=== PATIENT | male | born 2000 | race Caucasian/White ===

== ENCOUNTER → 2023-03-27 08:54 | Outpatient (CLI) | payer BC, SELFPAY ==
--- NOTE | ~2023-03-27 | MR_ITS ---
MRI of the cervical spine Clinical History: Neck pain, radiculopathy Technique: Axial T2-weighted and gradient images, and sagittal T1-weighted, T2-weighted, and STIR zuleyma ges were acquired. Findings: There is no fracture or dislocation of the cervical spine. Vertebral bodies maintain normal height and alignment. No bone marrow signal abnormality seen. At C2-C3, there is no disc bulge or herniation. No spinal canal stenosis, cord compression, or neural foraminal narrowing. At C3-C4, there is no disc bulge or herniation. There is mild left neural foraminal narrowing with mi ld left facet arthropathy. No central canal stenosis, cord compression, or right neural foraminal tatianna rowing. At C4-C5, there is no disc bulge or herniation. No spinal canal stenosis, cord compression, or neural foraminal narrowing. At C5-C6 and C6-C7, there is no disc bulge or herniation. No spinal canal stenosis, cord compression, or neural foraminal narrowing at these levels. No abnormal signal seen in the spinal cord. Paravertebral soft tissues are unremarkable. Impression: Minimal degenerative spondylosis, as above. Reviewed, dictated and finalized at location . Impression: Minimal degenerative spondylosis, as above.
== END ==
PROVIDERS: PCP Internal Medicine Geriatric Medicine; Visit Provider Internal Medicine Geriatric Medicine
DX: M54.2 Cervicalgia (principal)
CPT/HCPCS: 72141